=== PATIENT | female | born 1950 | race Hispanic/Latino ===

== ENCOUNTER → 2018-05-10 | Outpatient (CLI) | payer MEDICARE ==
--- NOTE | 2018-05-10 13:04 | Diagnostic Imaging Report ---
EXAM: US ABDOMEN COMPLETE DATE: 05/10/2018 11:41 AM INDICATION: Cirrhosis COMPARISON: None TECHNIQUE: Transverse and longitudinal miller scale and color doppler sonographic images of the upper abdomen were obtained. FINDINGS: LIVER 13.3 cm in the right midclavicular line. Coarsened, heterogeneous echogenicity, nodular contour, no discrete masses. SPLEEN 12.2 cm in maximum diameter. Normal echogenicity, punctate calcification in the periphery.. GALLBLADDER No stones, sludge, wall-thickening or pericholecystic fluid. Negative sonographic Monson's sign. BILE DUCTS No intra nor extra-hepatic biliary dilation. Common bile duct measures 0.4 cm PANCREAS: Visualized portions are normal. RIGHT KIDNEY: 11 cm Echogenicity: Normal Collecting System: No hydronephrosis Stones: None Cyst/Mass: 1.7 x 1.6 x 1.5 cm rounded uniformly hyperechoic lesion in the inferior pole. LEFT KIDNEY: 11 cm Echogenicity: Normal Collecting System: No hydronephrosis Stones: None Cyst/Mass: None VESSELS: Aorta: Nonaneurysmal Inferior Vena Cava: Patent Main Portal Vein: 1.2 cm, normal size with hepatopetal flow. FREE FLUID: None IMPRESSION: Cirrhotic liver morphology with portal hypertension suggested by borderline splenomegaly. 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 Definitive characterization is suggested with CT of the abdomen with and without contrast, renal mass protocol. Signed by: Dr. John Govea M.D. on 05/10/2018 1:00 PM
== END ==
LOC: US 11:26
PROVIDERS: ATTEND Internal Medicine Gastroenterology
DX: K74.69 Other cirrhosis of liver (principal); E66.3 Overweight; Z71.3 Dietary counseling and surveillance
CPT/HCPCS: 76700